=== PATIENT | female | born 1945 | race Caucasian/White ===

== ENCOUNTER → 2024-04-02 11:43 | Outpatient (REF) | payer OTHER, SELFPAY ==
[2024-04-02 13:17] LABS: % Basophils 0.7 % (0-2); % Eosinophils 3.9 % (0-6); % Immature Granulocytes 0.2 % (0-0.5); % Lymphocytes 23.6 % (20.5-51.1); % Monocytes 8.2 % (1.7-9.3); % Neutrophils 63.4 % (42.2-75.2); Absolute Eosinophils 0.2 10^3/uL (0-0.7); Absolute Lymphocytes 1.3 10^3/uL (1.2-3.4); Absolute Monocytes 0.4 10^3/uL (0.1-0.6); Absolute Neutrophils 3.4 10^3/uL (1.4-6.5); Hematocrit 31.3 % (37.0-47.0); Mean Corp Hgb Conc. 31.9 g/dL (33.0-37.0); Mean Corpuscular Hgb 24.9 pg (27.0-31.0); Mean Corpuscular Volume 78.1 fL (81.0-99.0); Mean Platelet Volume 10.1 fL (7.4-10.4); Nucleated Red Blood Cells % 0 %; Platelet Count 384 10^3/uL (130-400); Red Blood Cell Count 4.01 10^6/uL (4.20-5.40); Red Cell Dist. Width 17.8 % (11.5-14.5); White Blood Cell Count 5.4 10^3/uL (4.8-10.8)
[2024-04-02 13:55] LABS: ALT (SGPT) < 10 U/L (0-35); AST (SGOT) 22 U/L (14-36); Albumin 3.6 g/dl (3.5-5.0); Alkaline Phosphatase 118 U/L (38-126); Blood Urea Nitrogen 18 mg/dl (7-17); Calcium 8.9 mg/dl (8.4-10.2); Carbon Dioxide 26 mmol/L (22-30); Chloride 107 mmol/L (98-107); Glucose 81 mg/dl (70-99); HDL Cholesterol 62 mg/dl; LDL Cholesterol, Calculated 75 mg/dl; Potassium 5.3 mmol/L (3.5-5.1); Sodium 140 mmol/L (135-145); Total Bilirubin 0.6 mg/dl (0.2-1.3); Total Cholesterol 154 mg/dl (50-199); Total Protein 6.2 g/dl (6.3-8.2); Triglyceride 87 mg/dl (10-149); Very Low Density Lipoprotein 17 mg/dl (0-30); eGFR > 60.00
[2024-04-02 16:00] LABS: Free T4 1.29 ng/dl (0.78-2.19)
== END ==
LOC: REG 11:43
PROVIDERS: ATTENDING PHYSICIAN Nurse Practitioner Adult Health
DX: G40.909 Epilepsy, unspecified, not intractable, without status epilepticus (principal); M15.9 Polyosteoarthritis, unspecified; M79.18 Myalgia, other site; E03.9 Hypothyroidism, unspecified; Z98.84 Bariatric surgery status
CPT/HCPCS: 36415; 80053; 80061; 84439; 84443; 85025

== ENCOUNTER → 2024-04-10 13:28 | Outpatient (REF) | payer OTHER, SELFPAY ==
[2024-04-10 15:20] LABS: Blood Urea Nitrogen 26 mg/dl (7-17); Calcium 8.9 mg/dl (8.4-10.2); Carbon Dioxide 23 mmol/L (22-30); Chloride 111 mmol/L (98-107); Glucose 77 mg/dl (70-99); Potassium 4.9 mmol/L (3.5-5.1); Sodium 138 mmol/L (135-145); eGFR > 60.00
== END ==
LOC: REG 13:28
PROVIDERS: ATTENDING PHYSICIAN Nurse Practitioner Adult Health
DX: E87.5 Hyperkalemia (principal)
CPT/HCPCS: 36415; 80048

== ENCOUNTER → 2024-05-20 08:24 | Outpatient (REF) | payer OTHER, SELFPAY | LOC: MRI 3T 08:24 | PROVIDERS: ATTENDING PHYSICIAN Psychiatry & Neurology Neurology; FAMILY PHYSICIAN Nurse Practitioner Adult Health | DX: M54.2 Cervicalgia (principal) | CPT/HCPCS: 72141 ==

== ENCOUNTER → 2024-07-14 08:53 | Outpatient (REF) | payer OTHER, SELFPAY ==
[2024-07-14 09:53] LABS: % Basophils 0.9 % (0-2); % Eosinophils 4.2 % (0-6); % Immature Granulocytes 0.4 % (0-0.5); % Monocytes 8.5 % (1.7-9.3); Absolute Basophils 0.1 10^3/uL (0-0.2); Absolute Eosinophils 0.2 10^3/uL (0-0.7); Absolute Lymphocytes 1.4 10^3/uL (1.2-3.4); Absolute Monocytes 0.5 10^3/uL (0.1-0.6); Absolute Neutrophils 3.3 10^3/uL (1.4-6.5); Hematocrit 30.8 % (37.0-47.0); Hemoglobin 9.8 g/dL (12.0-16.0); Mean Corp Hgb Conc. 31.8 g/dL (33.0-37.0); Mean Corpuscular Hgb 25.3 pg (27.0-31.0); Mean Corpuscular Volume 79.6 fL (81.0-99.0); Mean Platelet Volume 10.4 fL (7.4-10.4); Nucleated Red Blood Cells % 0 %; Platelet Count 324 10^3/uL (130-400); Red Blood Cell Count 3.87 10^6/uL (4.20-5.40); Red Cell Dist. Width 20.3 % (11.5-14.5); White Blood Cell Count 5.4 10^3/uL (4.8-10.8)
[2024-07-14 10:28] LABS: Blood Urea Nitrogen 27 mg/dl (7-17); Calcium 8.9 mg/dl (8.4-10.2); Carbon Dioxide 25 mmol/L (22-30); Chloride 109 mmol/L (98-107); Glucose 84 mg/dl (70-99); Iron 44 ug/dl (37-170); Potassium 4.9 mmol/L (3.5-5.1); Sodium 143 mmol/L (135-145); eGFR 51.43
[2024-07-14 10:37] LABS: Percent Saturation 11 % (20-50); Total Iron Binding Capacity 376 ug/dl (265-497)
[2024-07-14 10:56] LABS: TSH Reflex To Free T4 0.56 uIU/ml (0.47-4.68)
[2024-07-14 11:00] LABS: Ferritin 7.1 ng/ml (11.1-264.0)
[2024-07-14 11:32] LABS: Folate 17.9 ng/ml (2.76-20); Vitamin B12 317 pg/ml (239-931)
== END ==
LOC: REG 08:53
PROVIDERS: ATTENDING PHYSICIAN Nurse Practitioner Adult Health
DX: D64.9 Anemia, unspecified (principal); E03.9 Hypothyroidism, unspecified; Z98.84 Bariatric surgery status; E87.5 Hyperkalemia
CPT/HCPCS: 36415; 80048; 82607; 82728; 82746; 83540; 83550; 84443; 85025

== ENCOUNTER → 2024-07-15 14:54 | Outpatient (REF) | payer OTHER, SELFPAY | LOC: REG 14:54 | PROVIDERS: ATTENDING PHYSICIAN Nurse Practitioner Adult Health | DX: D64.9 Anemia, unspecified (principal) | CPT/HCPCS: 82272 ==

== ENCOUNTER → 2024-08-15 11:07 | Outpatient (REF) | payer OTHER, SELFPAY ==
[2024-08-15 13:23] LABS: % Basophils 0.9 % (0-2); % Eosinophils 9.5 % (0-6); % Immature Granulocytes 0.4 % (0-0.5); % Lymphocytes 21.2 % (20.5-51.1); % Monocytes 10.4 % (1.7-9.3); % Neutrophils 57.6 % (42.2-75.2); Absolute Basophils 0.1 10^3/uL (0-0.2); Absolute Eosinophils 0.5 10^3/uL (0-0.7); Absolute Lymphocytes 1.2 10^3/uL (1.2-3.4); Absolute Monocytes 0.6 10^3/uL (0.1-0.6); Absolute Neutrophils 3.2 10^3/uL (1.4-6.5); Hematocrit 35.1 % (37.0-47.0); Hemoglobin 11.1 g/dL (12.0-16.0); Mean Corp Hgb Conc. 31.6 g/dL (33.0-37.0); Mean Corpuscular Hgb 27.2 pg (27.0-31.0); Mean Platelet Volume 10.1 fL (7.4-10.4); Nucleated Red Blood Cells % 0 %; Platelet Count 329 10^3/uL (130-400); Red Blood Cell Count 4.08 10^6/uL (4.20-5.40); Red Cell Dist. Width 23.9 % (11.5-14.5); White Blood Cell Count 5.5 10^3/uL (4.8-10.8)
[2024-08-15 13:31] LABS: Normal RBC Morphology No
[2024-08-15 13:32] LABS: Anisocytosis 1+
[2024-08-15 13:38] LABS: IgA 100 mg/dl (70-400)
[2024-08-15 20:24] LABS: C-Reactive Protein < 5.00 mg/L (0.0-10.00)
[2024-08-15 21:00] LABS: Ferritin 12.9 ng/ml (11.1-264.0)
[2024-08-17 01:52] LABS: Endomysial IgA Antibody Titer <1:10 (<1:10)
== END ==
LOC: REG 11:07
PROVIDERS: ATTENDING PHYSICIAN Internal Medicine
DX: D50.9 Iron deficiency anemia, unspecified (principal)
CPT/HCPCS: 36415; 82728; 82784; 83516; 85025; 86140; 86231

== ENCOUNTER 2024-08-31 14:00 | Emergency (ER) | payer OTHER, SELFPAY ==
[2024-08-31 14:15] VITALS: BP 192/168
[2024-08-31 15:13] LABS: ALT (SGPT) 14 U/L (0-35); AST (SGOT) 27 U/L (14-36); Albumin 4.1 g/dl (3.5-5.0); Alkaline Phosphatase 142 U/L (38-126); Blood Urea Nitrogen 30 mg/dl (7-17); Calcium 9.1 mg/dl (8.4-10.2); Carbon Dioxide 21 mmol/L (22-30); Chloride 111 mmol/L (98-107); Glucose 95 mg/dl (70-99); Potassium 4.9 mmol/L (3.5-5.1); Sodium 145 mmol/L (135-145); Total Bilirubin 0.6 mg/dl (0.2-1.3); Total Protein 6.7 g/dl (6.3-8.2); eGFR 42.09
[2024-08-31 15:28] LABS: % Basophils 0.7 % (0-2); % Eosinophils 1.6 % (0-6); % Immature Granulocytes 0.4 % (0-0.5); % Lymphocytes 15.2 % (20.5-51.1); % Monocytes 9.6 % (1.7-9.3); % Neutrophils 72.5 % (42.2-75.2); Absolute Basophils 0.1 10^3/uL (0-0.2); Absolute Eosinophils 0.1 10^3/uL (0-0.7); Absolute Lymphocytes 1.1 10^3/uL (1.2-3.4); Absolute Monocytes 0.7 10^3/uL (0.1-0.6); Absolute Neutrophils 5.1 10^3/uL (1.4-6.5); Hematocrit 38.1 % (37.0-47.0); Hemoglobin 11.9 g/dL (12.0-16.0); Mean Corp Hgb Conc. 31.2 g/dL (33.0-37.0); Mean Corpuscular Hgb 27.1 pg (27.0-31.0); Mean Corpuscular Volume 86.8 fL (81.0-99.0); Mean Platelet Volume 9.5 fL (7.4-10.4); Nucleated Red Blood Cells % 0 %; Platelet Count 383 10^3/uL (130-400); Red Blood Cell Count 4.39 10^6/uL (4.20-5.40); Red Cell Dist. Width 22.8 % (11.5-14.5)
[2024-08-31 15:29] LABS: Anisocytosis 1+; Macrocytosis 1+
[2024-08-31 15:30] LABS: Acanthocytes Slight; Ovalocytes Slight
--- NOTE | 2024-08-31 15:30 | ED.GENMED ---
History of Present Illness
General
Chief Complaint: Musculo-Skeletal Complaint
Time Seen by Provider: 08/31/24 15:29
History of Present Illness
History of Present Illness:
TIME OF INITIAL ENCOUNTER: 3:30 PM
HPI: The patient has a history of Parkinson's and usually has a rather subtle tremor. Last night into today she has dramatically worsened tremor to the upper extremities. She denies any other symptoms. Son thought maybe she was a little bit
confused earlier but is answering questions appropriately for me. She reports a very mild headache.
EXAM:
GENERAL: Well appearing but upper extremity tremor obvious
HEENT: Moist oral mucosa
CARDIOVASCULAR: No murmurs, normal heart rate, regular rhythm, No chest wall tenderness
PULMONARY: No respiratory distress, breath sounds are clear and equal
ABDOMEN: Soft with no peritoneal signs, no tenderness
NEUROLOGIC: Excellent strength all extremities, marked tremor noted upon arrival that worsens with intention
PSYCHIATRIC: Appropriate mental status, normal insight and judgement
EXTREMITIES: Nontender, no edema, moves all extremities equally
SKIN: No rash, no lesions
NUMBER AND COMPLEXITY OF PROBLEMS ADDRESSED AT THE ENCOUNTER
� Chronic conditions affecting care: Bipolar, anxiety/depression, Parkinson's
� Acute Exacerbation and/or Progression of Chronic Illness: This is an acute problem
� Differential Diagnosis includes: Worsening Parkinson's, anxiety
AMOUNT AND/OR COMPLEXITY OF DATA TO BE REVIEWED AND ANALYZED
� I performed an independent evaluation of and my interpretation is:
EKG:
CT:
X-rays:
Laboratory Studies: White count 7.0, hemoglobin 11.9, bicarb 21, BUN 30, creatinine 1.3,
Other:
� Review of other/old records: No old records available for review
� Clinical information was obtained by an independent historian: I spoke to family at bedside including son
� Prescriptions/Medications Considered but not given:
� Further testing considered but not performed:
RISK OF COMPLICATIONS AND/OR MORBIDITY OR MORTALITY OF PATIENT MANAGEMENT
� Social determinants of health affecting care:
� Discussion with other providers: I discussed case with Dr. Siddiqui who recommends additional Sinemet
� Escalation of care including admission/observation vs risk of discharge considered: In addition to the Sinemet, I have given IV Ativan
ANY OTHER UPDATES:
4:35 PM: I reassessed patient after meds given, she is markedly improved. There is no further tremor. Will give a very short course of Xanax and I stressed the need to only use on an as needed basis for severe symptoms. She does have a
neurologist that she can follow-up with.
Phy Exam
Physical Exam
Physical Exam:
See HPI
Course
Orders/Labs/Results
Orders:
Orders
08/31/24 14:52
Complete Blood Count/With Diff Urgent
Comprehensive Metabolic Panel Urgent
08/31/24 15:45
Lorazepam [Ativan] 1 mg IV NOW STA
08/31/24 15:50
Carbidopa/Levodopa [Sinemet 25-100] 1 tablet PO NOW STA
Abnormal Lab Results
08/31/24
14:52
Hgb 11.9 L g/dL
(12.0-16.0)
MCHC 31.2 L g/dL
(33.0-37.0)
RDW 22.8 H %
(11.5-14.5)
Absolute Lymphs (auto) 1.1 L 10^3/uL
(1.2-3.4)
Absolute Monos (auto) 0.7 H 10^3/uL
(0.1-0.6)
Lymphocytes % 15.2 L %
(20.5-51.1)
Monocytes % 9.6 H %
(1.7-9.3)
Chloride 111 H mmol/L
(98-107)
Carbon Dioxide 21 L mmol/L
(22-30)
BUN 30 H mg/dl
(7-17)
Creatinine 1.3 H mg/dL
(0.6-1.0)
Alkaline Phosphatase 142 H U/L
(38-126)
08/31/24 14:52
08/31/24 14:52
Vital Signs
Initial and Last Documented VS:
Initial Vital Signs
Temp Pulse Resp Pulse Ox
98.4 F 80 18 99
08/31/24 14:02 08/31/24 14:02 08/31/24 14:02 08/31/24 14:02
Last Documented Vital Signs
Temp Pulse Resp BP Pulse Ox
98.4 F 80 18 192/168 97
08/31/24 14:02 08/31/24 14:02 08/31/24 14:02 08/31/24 14:15 08/31/24 14:30
*Critical Care Note
Total Time (30-74mins, 75-104mins- exclusive of procedures): Not Applicable
ED Attending Note
-
Portions of this chart may have been created with voice recognition software.� Occasional wrong word or��sound alike� substitutions may have occurred due to the inherent limitations of voice recognition software.
Discharge Plan
Departure
Referrals:
UNKNOWN - PT DOES,NOT KNOW [Family Provider] -
Interventions
Interventions:
*Risk Screen - Suicide Last Done: 08/31/24 14:02
*General Assessment Last Done: 08/31/24 14:02
*Neglect/Abuse Screening Last Done: 08/31/24 14:02
ED-Musculoskeletal Assessment Last Done: 08/31/24 14:42
Discharge Date and Time
Print Language: GERMAN
[2024-08-31 15:55] LABS: Normal RBC Morphology No
[2024-08-31] MEDS: ATIVAN 1 MG IV (16:00)
[2024-08-31] MEDS: SINEMET 25-100 1 TABLET PO (16:01)
[2024-08-31 16:05] VITALS: BP 186/71
[2024-08-31 17:06] VITALS: BP 178/83
== END 2024-08-31 17:42 | disposition home or self-care (01) ==
LOC: EMR 14:00
PROVIDERS: EMERGENCY PHYSICIAN Emergency Medicine
DX: G20.A1 Parkinson's disease without dyskinesia, without mention of fluctuations (principal); F41.9 Anxiety disorder, unspecified; F31.9 Bipolar disorder, unspecified
CPT/HCPCS: 96374; 99284; 80053; 85025

== ENCOUNTER 2024-09-04 14:14 | Emergency (ER) | payer OTHER, SELFPAY ==
[2024-09-04 14:16] VITALS: BP 189/99
--- NOTE | 2024-09-04 15:22 | ED.GENMED ---
History of Present Illness
General
Chief Complaint: Change in Mental Status
Source: patient
Exam Limitations: none
Time Seen by Provider: 09/04/24 15:10
History of Present Illness
History of Present Illness:
See MDM
Past History
Past History
ED Past Medical History: Other (Parkinsons)
ED Past Surgical History: None
Social History
Tobacco: Non-smoker
Alcohol: None
Phy Exam
Physical Exam
Physical Exam:
See MDM
Course
Orders/Labs/Results
Orders:
Orders
09/04/24 15:31
Urinalysis Reflex To Culture Urgent
Date Specimen was Collected: 09/04/24
Time Specimen was Collected: 15:26
Urine Microscopic Reflex Cult Urgent
Urine Culture Urgent
MARIPOSA Source: U
Specimen Description:
Date Specimen was Collected: 09/04/24
Time Specimen was Collected: 15:26
09/04/24 16:21
Sulfamethox./Trimethoprim Ds [Bactrim Ds 800 mg/160 mg] 1 tablet PO NOW STA
Abnormal Lab Results
09/04/24
15:31
Urine Nitrite (Reflex) Positive A
(Negative)
Leukocyte Esterase Rfl Trace A
(Negative)
Urine Bacteria (Reflex) Many A
(Negative)
Vital Signs
Initial and Last Documented VS:
Initial Vital Signs
Temp Pulse Resp BP Pulse Ox
98.1 F 58 18 189/99 100
09/04/24 14:16 09/04/24 14:16 09/04/24 14:16 09/04/24 14:16 09/04/24 14:16
Last Documented Vital Signs
Temp Pulse Resp BP Pulse Ox
98.1 F 58 18 189/83 99
09/04/24 14:16 09/04/24 14:16 09/04/24 14:16 09/04/24 15:29 09/04/24 15:31
MDM/Problems Addressed
Differential Diagnosis Includes:
HPI and MDM Narrative:
79-year-old female presenting with increased confusion. She was in the emergency department 4 days ago for the same symptoms. At that time, patient was very tremulous. Patient had lab work performed and was given Ativan. All symptoms appear to
improve. However, symptoms have returned. Son at bedside believes this is related to a recent increase in her tramadol. Patient has chronic pain. Patient was prescribed Xanax but was warned about the addictive properties of it so she has been
scared to use it. Son at bedside does acknowledge that she is much better today than she was last time she was in the emergency department. Patient is answering questions appropriately. Given that she just had blood work, there is low utility in
repeating it. Given that she has no focal neurodeficits, there is low utility in CT head. Both patient and son agree with this. However, will obtain urinalysis
Physical exam
General: Well appearing and non-toxic
HEENT: protecting airway
Neck: supple
CV: No evidence of cyanosis. Regular rate and rhythm
Resp: No accessory muscle use. Lungs clear
Abd: Non-distended
Extremities: No deformities. No leg edema
Neuro: alert. No focal deficits
Psych: Normal affect
Skin: Intact
Problems Addressed including Acute and Chronic Conditions affecting care:
1. Altered mental status
Acuity: acute
Prognosis: stable
Details: Potentially related to increased tramadol. Will obtain urinalysis
2. Bacteriuria
Acuity: acute
Prognosis: stable
Details: Will start Bactrim
Updates
Urine does have nitrites and leuk esterase. We discussed possible admission for IV antibiotics given her mental status change. However, patient states she feels much better and her son also acknowledges this as well. They have decided to go home.
Will start Bactrim. There is still the potential for altered mental status being related to tramadol. We discussed that she should change her tramadol to oxycodone if symptoms persist despite taking the antibiotics
Differential Diagnosis (but not limited to): UTI, medication adverse reaction
Testing considered: CT head but she has no focal deficits
Drug therapy (if applicable): OTC meds, please see d/c instruction regarding Rx drugs
Amount and/or Complexity of Data Reviewed
Clinical info obtained from: Patient
External data reviewed: Recent blood work a few days ago showed no significant abnormality
Labs I independently reviewed (but not limited to): Bacteriuria
Radiology: N/A
Pulse Ox: not hypoxic
EKG independently reviewed: N/A
Aligning Inspector: N/A
Critical Care: N/A
Risk of Complication:
Social Determinants of health: Good social support
Discussed with other providers: N/A
Escalation of Care includes Admit/Obs: After being observed in the Emergency Department, pt stable for discharge.
Occasional wrong word or 'sound a like' substitutions may have occurred due to the inherent limitations of voice recognition software. Read the chart carefully and recognize, using context, where substitutions have occurred.
*Critical Care Note
Total Time (30-74mins, 75-104mins- exclusive of procedures): Not Applicable
ED Attending Note
-
Portions of this chart may have been created with voice recognition software.� Occasional wrong word or��sound alike� substitutions may have occurred due to the inherent limitations of voice recognition software.
Discharge Plan
Departure
Patient Disposition: Home (Routine Discharge)
Date of Disposition: 09/04/24
Time of Disposition: 16:24
Patient with high blood pressure during this ER visit?: Yes
Discharge Problem:
Acute UTI
Instructions: Urinary Tract Infection, Adult ED
Prescriptions:
New
sulfamethoxazole-trimethoprim [Bactrim DS] 800-160 mg tablet
1 tab PO BID 3 Days Qty: 6 0RF
oxycodone 5 mg tablet
5 mg PO Q8H PRN (Reason: Pain) Qty: 15 0RF
No Action
alprazolam [Xanax] 0.5 mg tablet
0.5 mg PO DAILY PRN (Reason: anxiety) Qty: 10 0RF
Referrals:
Teressa Schultz CRNP [Family Provider] -
Activity Restrictions/Additional Instructions:
Please return for any worsening symptoms.
You may return at any time if you have further concerns.
Please follow up with your doctor at the first available appointment, preferably this week.
As we discussed, her symptoms could be related to the UTI. If symptoms persist despite taking antibiotics, you can start taking the oxycodone instead of the tramadol to see if that helps.
Thank you for choosing [facility].
Interventions
Interventions:
*Risk Screen - Suicide Last Done: 09/04/24 14:20
*General Assessment Last Done: 09/04/24 15:33
*Neglect/Abuse Screening Last Done: 09/04/24 15:33
*ED COVID-19 Vaccine History Last Done: 09/04/24 15:33
ED- Neurological Assessment Last Done: 09/04/24 15:33
ED Swallowing Screen Last Done: 09/04/24 15:33
Discharge Date and Time
Print Language: AZERI
[2024-09-04 15:29] VITALS: BP 189/83
[2024-09-04 15:30] VITALS: BMI 32.6
[2024-09-04 16:00] VITALS: BP 181/88
[2024-09-04 16:00] LABS: Urine Albumin Negative (Neg - Trace); Urine Bilirubin Negative (Negative); Urine Character Slightly Cloudy (Clear); Urine Color Yellow; Urine Glucose Negative (Negative); Urine Ketone Negative (Negative); Urine Leukocyte Trace (Negative); Urine Nitrite Positive (Negative); Urine Occult Blood Negative (Negative); Urine Urobilinogen Negative (Neg - 1+)
[2024-09-04 16:06] LABS: Urine Squamous Cell 0-2 /LPF (Few)
[2024-09-04 16:07] LABS: Urine Bacteria Many (Negative); Urine Red Blood Cell 0-2 /HPF (0-2)
[2024-09-04] MEDS: BACTRIM DS 800 MG/160 MG 1 TABLET PO (17:00)
[2024-09-04 17:02] VITALS: BP 175/97
== END 2024-09-04 17:17 | disposition home or self-care (01) ==
LOC: EMR 14:14
PROVIDERS: EMERGENCY PHYSICIAN Student in an Organized Health Care Education/Training Program; FAMILY PHYSICIAN Nurse Practitioner Adult Health
DX: N39.0 Urinary tract infection, site not specified (principal); G20.A1 Parkinson's disease without dyskinesia, without mention of fluctuations
CPT/HCPCS: 99283; 81003; 81015; 87086

== ENCOUNTER 2024-10-01 06:24 | Day surgery (SDC) | payer OTHER, SELFPAY | END 2024-10-01 10:45 | disposition home or self-care (01) | LOC: GI 06:24 | PROVIDERS: ATTENDING PHYSICIAN Internal Medicine | DX: K31.811 Angiodysplasia of stomach and duodenum with bleeding (principal); D50.9 Iron deficiency anemia, unspecified; D12.2 Benign neoplasm of ascending colon; K55.20 Angiodysplasia of colon without hemorrhage; Q39.9 Congenital malformation of esophagus, unspecified; K44.9 Diaphragmatic hernia without obstruction or gangrene; Z98.84 Bariatric surgery status; K31.89 Other diseases of stomach and duodenum; K22.89 Other specified disease of esophagus | CPT/HCPCS: 45380; 45382; 43239; 88305; 88342 ==

== ENCOUNTER → 2024-11-04 09:38 | Outpatient (REF) | payer OTHER, SELFPAY ==
[2024-11-04 11:11] LABS: % Basophils 0.6 % (0-2); % Eosinophils 3.3 % (0-6); % Immature Granulocytes 0.2 % (0-0.5); % Lymphocytes 30.9 % (20.5-51.1); % Monocytes 10.7 % (1.7-9.3); % Neutrophils 54.3 % (42.2-75.2); Absolute Eosinophils 0.2 10^3/uL (0-0.7); Absolute Lymphocytes 1.5 10^3/uL (1.2-3.4); Absolute Monocytes 0.5 10^3/uL (0.1-0.6); Absolute Neutrophils 2.6 10^3/uL (1.4-6.5); Hematocrit 35.8 % (37.0-47.0); Hemoglobin 11.4 g/dL (12.0-16.0); Mean Corp Hgb Conc. 31.8 g/dL (33.0-37.0); Mean Corpuscular Hgb 28.1 pg (27.0-31.0); Mean Corpuscular Volume 88.4 fL (81.0-99.0); Mean Platelet Volume 10.4 fL (7.4-10.4); Nucleated Red Blood Cells % 0 %; Platelet Count 271 10^3/uL (130-400); Red Blood Cell Count 4.05 10^6/uL (4.20-5.40); Red Cell Dist. Width 15.6 % (11.5-14.5); White Blood Cell Count 4.9 10^3/uL (4.8-10.8)
[2024-11-04 11:55] LABS: Vitamin D, 25-OH*** 35.6 ng/mL (30-80)
[2024-11-04 12:08] LABS: TSH 1.98 uIU/ml (0.47-4.68)
[2024-11-04 12:44] LABS: Folate 8.5 ng/ml (2.76-20); Vitamin B12 294 pg/ml (239-931)
[2024-11-05 16:00] LABS: tTG IgA Antibody <1.02 FLU (0.00-4.99)
[2024-11-06 03:07] LABS: IgA 99 mg/dl (70-400)
[2024-11-06 07:56] LABS: Endomysial IgA Antibody Titer <1:10 (<1:10)
== END ==
LOC: REG 09:38
PROVIDERS: FAMILY PHYSICIAN Nurse Practitioner Adult Health
DX: F31.9 Bipolar disorder, unspecified (principal); F41.1 Generalized anxiety disorder; Z79.899 Other long term (current) drug therapy; Z00.00 Encounter for general adult medical examination without abnormal findings; D50.9 Iron deficiency anemia, unspecified
CPT/HCPCS: 36415; 82306; 82607; 82746; 82784; 83516; 84443; 85025; 86231

== ENCOUNTER → 2024-12-27 07:15 | Outpatient (REF) | payer OTHER, SELFPAY ==
[2024-12-27 08:40] LABS: ALT (SGPT) < 10 U/L (0-35); AST (SGOT) 15 U/L (14-36); Albumin 3.5 g/dl (3.5-5.0); Alkaline Phosphatase 102 U/L (38-126); Blood Urea Nitrogen 24 mg/dl (7-17); Carbon Dioxide 21 mmol/L (22-30); Chloride 113 mmol/L (98-107); Glucose 85 mg/dl (70-99); Potassium 4.7 mmol/L (3.5-5.1); Sodium 141 mmol/L (135-145); Total Bilirubin 0.8 mg/dl (0.2-1.3); Total Protein 5.9 g/dl (6.3-8.2); eGFR 57.66
[2024-12-27 09:07] LABS: % Eosinophils 3.5 % (0-6); % Immature Granulocytes 0.2 % (0-0.5); % Monocytes 7.8 % (1.7-9.3); % Neutrophils 56.5 % (42.2-75.2); Absolute Basophils 0.1 10^3/uL (0-0.2); Absolute Eosinophils 0.2 10^3/uL (0-0.7); Absolute Lymphocytes 1.5 10^3/uL (1.2-3.4); Absolute Monocytes 0.4 10^3/uL (0.1-0.6); Absolute Neutrophils 2.8 10^3/uL (1.4-6.5); Hematocrit 36.8 % (37.0-47.0); Hemoglobin 11.5 g/dL (12.0-16.0); Mean Corp Hgb Conc. 31.3 g/dL (33.0-37.0); Mean Corpuscular Hgb 27.8 pg (27.0-31.0); Mean Corpuscular Volume 89.1 fL (81.0-99.0); Mean Platelet Volume 10.6 fL (7.4-10.4); Nucleated Red Blood Cells % 0 %; Platelet Count 317 10^3/uL (130-400); Red Blood Cell Count 4.13 10^6/uL (4.20-5.40); Red Cell Dist. Width 15.2 % (11.5-14.5); White Blood Cell Count 4.9 10^3/uL (4.8-10.8)
[2024-12-27 09:30] LABS: Vitamin B12 263 pg/ml (239-931)
== END ==
LOC: REG 07:15
PROVIDERS: ATTENDING PHYSICIAN Nurse Practitioner Adult Health
DX: E53.8 Deficiency of other specified B group vitamins (principal); D50.9 Iron deficiency anemia, unspecified; N39.3 Stress incontinence (female) (male); G20.A1 Parkinson's disease without dyskinesia, without mention of fluctuations; F31.9 Bipolar disorder, unspecified
CPT/HCPCS: 36415; 80053; 82607; 85025

== ENCOUNTER → 2025-01-15 13:15 | Outpatient (REF) | payer OTHER, SELFPAY | LOC: WDC 13:15 | PROVIDERS: ATTENDING PHYSICIAN Nurse Practitioner Adult Health | DX: M85.80 Other specified disorders of bone density and structure, unspecified site (principal); Z78.0 Asymptomatic menopausal state; Z12.31 Encounter for screening mammogram for malignant neoplasm of breast | CPT/HCPCS: 77063; 77067 ==

== ENCOUNTER → 2025-02-23 14:23 | Outpatient (REF) | payer OTHER, SELFPAY ==
[2025-02-23 16:10] LABS: % Basophils 0.7 % (0-2); % Eosinophils 2.1 % (0-6); % Immature Granulocytes 0.2 % (0-0.5); % Lymphocytes 30.8 % (20.5-51.1); % Monocytes 9.7 % (1.7-9.3); % Neutrophils 56.5 % (42.2-75.2); Absolute Eosinophils 0.1 10^3/uL (0-0.7); Absolute Lymphocytes 1.9 10^3/uL (1.2-3.4); Absolute Monocytes 0.6 10^3/uL (0.1-0.6); Absolute Neutrophils 3.4 10^3/uL (1.4-6.5); Hemoglobin 11.6 g/dL (12.0-16.0); Mean Corp Hgb Conc. 32.2 g/dL (33.0-37.0); Mean Corpuscular Hgb 28.7 pg (27.0-31.0); Mean Corpuscular Volume 89.1 fL (81.0-99.0); Mean Platelet Volume 11.4 fL (7.4-10.4); Nucleated Red Blood Cells % 0 %; Platelet Count 282 10^3/uL (130-400); Red Blood Cell Count 4.04 10^6/uL (4.20-5.40); Red Cell Dist. Width 16.3 % (11.5-14.5); White Blood Cell Count 6.1 10^3/uL (4.8-10.8)
[2025-02-23 17:03] LABS: Vitamin B12 588 pg/ml (239-931)
== END ==
LOC: REG 14:23
PROVIDERS: ATTENDING PHYSICIAN Nurse Practitioner Adult Health
DX: E53.8 Deficiency of other specified B group vitamins (principal); D64.9 Anemia, unspecified
CPT/HCPCS: 36415; 82607; 85025

== ENCOUNTER → 2025-03-12 10:50 | Outpatient (REF) | payer OTHER, SELFPAY | LOC: RAD 10:50 | PROVIDERS: ATTENDING PHYSICIAN Obstetrics & Gynecology; FAMILY PHYSICIAN Nurse Practitioner Adult Health | DX: R33.9 Retention of urine, unspecified (principal); N31.9 Neuromuscular dysfunction of bladder, unspecified | CPT/HCPCS: 76770 ==

== ENCOUNTER → 2025-05-09 08:03 | Outpatient (REF) | payer OTHER, SELFPAY ==
[2025-05-09 11:15] LABS: Hematocrit 36.5 % (37.0-47.0); Hemoglobin 11.5 g/dL (12.0-16.0); Mean Corp Hgb Conc. 31.5 g/dL (33.0-37.0); Mean Corpuscular Volume 88.6 fL (81.0-99.0); Nucleated Red Blood Cells % 0 %; Platelet Count 290 10^3/uL (130-400); Red Cell Dist. Width 15.7 % (11.5-14.5)
[2025-05-09 12:32] LABS: Iron 81 ug/dl (37-170)
[2025-05-09 12:43] LABS: Total Iron Binding Capacity 342 ug/dl (265-497)
[2025-05-09 13:10] LABS: Ferritin 10.4 ng/ml (11.1-264.0)
== END ==
LOC: REG 08:03
PROVIDERS: ATTENDING PHYSICIAN Nurse Practitioner Adult Health
DX: E61.1 Iron deficiency (principal)
CPT/HCPCS: 36415; 82728; 83540; 83550; 85025

== ENCOUNTER → 2025-08-25 07:39 | Outpatient (REF) | payer OTHER, SELFPAY ==
[2025-08-25 09:18] LABS: Urine Character Clear (Clear)
[2025-08-25 09:20] LABS: Hematocrit 36.9 % (37.0-47.0); Hemoglobin 11.8 g/dL (12.0-16.0); Mean Corp Hgb Conc. 32.0 g/dL (33.0-37.0); Mean Corpuscular Volume 90.9 fL (81.0-99.0); Nucleated Red Blood Cells % 0 %; Platelet Count 316 10^3/uL (130-400); Red Cell Dist. Width 15.4 % (11.5-14.5)
[2025-08-25 09:32] LABS: Urine Red Blood Cell 0-2 /HPF (0-2); Urine White Cell 26-30 /HPF (0-5)
[2025-08-25 09:34] LABS: ALT (SGPT) < 10 U/L (0-35); AST (SGOT) 15 U/L (14-36); Albumin 3.4 g/dl (3.5-5.0); Alkaline Phosphatase 83 U/L (38-126); Blood Urea Nitrogen 19 mg/dl (7-17); Calcium 8.7 mg/dl (8.4-10.2); Carbon Dioxide 26 mmol/L (22-30); Chloride 109 mmol/L (98-107); Glucose 78 mg/dl (70-99); HDL Cholesterol 50 mg/dl; Iron 44 ug/dl (37-170); LDL Cholesterol, Calculated 108 mg/dl; Potassium 4.6 mmol/L (3.5-5.1); Sodium 138 mmol/L (135-145); Total Protein 6.2 g/dl (6.3-8.2); Very Low Density Lipoprotein 20 mg/dl (0-30); eGFR > 60.00
[2025-08-25 09:44] LABS: Total Iron Binding Capacity 341 ug/dl (265-497)
[2025-08-25 09:53] LABS: Vitamin D, 25-OH*** 42.9 ng/mL (30-80)
[2025-08-25 10:11] LABS: Ferritin 9.7 ng/ml (11.1-264.0)
== END ==
LOC: REG 07:39
PROVIDERS: ATTENDING PHYSICIAN Internal Medicine Geriatric Medicine
DX: Z76.89 Persons encountering health services in other specified circumstances (principal); G20.A1 Parkinson's disease without dyskinesia, without mention of fluctuations; G40.909 Epilepsy, unspecified, not intractable, without status epilepticus; F31.9 Bipolar disorder, unspecified; E53.8 Deficiency of other specified B group vitamins; D50.9 Iron deficiency anemia, unspecified; E03.9 Hypothyroidism, unspecified; E78.2 Mixed hyperlipidemia; F51.01 Primary insomnia; J45.20 Mild intermittent asthma, uncomplicated; K21.9 Gastro-esophageal reflux disease without esophagitis; Z13.31 Encounter for screening for depression; I95.1 Orthostatic hypotension
CPT/HCPCS: 36415; 80053; 80061; 81003; 81015; 82306; 82728; 83540; 83550; 85025

== ENCOUNTER → 2025-09-30 12:25 | Outpatient (REF) | payer OTHER, SELFPAY | LOC: RAD 12:25 | PROVIDERS: ATTENDING PHYSICIAN Surgery; FAMILY PHYSICIAN Internal Medicine Geriatric Medicine | DX: N31.9 Neuromuscular dysfunction of bladder, unspecified (principal) | CPT/HCPCS: 72193; Q9967 ==

== ENCOUNTER 2025-10-09 06:15 | Day surgery (SDC) | payer OTHER, SELFPAY ==
[2025-10-05 09:07] VITALS: BMI 30.8
--- NOTE | 2025-10-05 14:49 | PTCARENOTE ---
Abnormal EKG reviewed by Dr Patel, no further action requested.
[2025-10-09 08:30] VITALS: BMI 30.8
[2025-10-09 09:38] VITALS: BP 120/64; BP 142/85
[2025-10-09 09:45] VITALS: BP 154/84
[2025-10-09 10:00] VITALS: BP 144/83
[2025-10-09 10:17] VITALS: BP 158/88
[2025-10-09 10:21] VITALS: BP 164/76
[2025-10-09 10:22] VITALS: BP 164/76
== END 2025-10-09 11:15 | disposition home or self-care (01) ==
LOC: SDS 06:15
PROVIDERS: ATTENDING PHYSICIAN Surgery; FAMILY PHYSICIAN Internal Medicine Geriatric Medicine
DX: N31.9 Neuromuscular dysfunction of bladder, unspecified (principal); G20.A1 Parkinson's disease without dyskinesia, without mention of fluctuations; Z87.448 Personal history of other diseases of urinary system
CPT/HCPCS: 51102; 36415; 93005